=== PATIENT | male | born 1985 ===

== ENCOUNTER 2019-06-02 10:10 | Day surgery (SDC) | payer OTHER ==
[~2019-06-02 10:10] MED LIST: Buffered Lidocaine 1% SYRIN* 1 ML/SYRINGE INTRADERM ONE; Clindamycin 900 MG/D5W BAG(*) 900 MG/50 ML BAG IVPB ONE; Famotidine IV* 10 MG/ML 2 ML (20 mg) IV ONE; Famotidine IV* 10 MG/ML 2 ML (20 mg) ONE; Lactated Ringers 1000 ML Bag* 1,000 ML IV SCH; Levalbuterol 0.63MG/3ML NEB* UNIT OF USE INH ONE
[2019-06-02] MEDS ORDERED: Lidocaine 2% PF * 5 ML VIAL ONE (10:37)
[2019-06-02] MEDS ORDERED: Propofol* 10 MG/ML 20 ML BTL ONE (10:37)
[2019-06-02] MEDS ORDERED: Ketorolac INJ* 30 MG/ML 1 ML VIAL ONE (10:37)
[2019-06-02] MEDS ORDERED: Dexamethasone IV* 4 MG/ML 1 ML (4 MG) ONE (10:37)
[2019-06-02] MEDS ORDERED: Ondansetron INJ* 2 MG/ML VIAL ONE (10:37)
[2019-06-02] MEDS ORDERED: fentaNYL* 50 MCG/ML 2 ML VIAL (100 MCG VIAL) ONE ×3 (10:38→12:58)
[2019-06-02] MEDS ORDERED: Midazolam* 1 MG/ML 5 ML VIAL (5 MG) ONE (10:38)
[2019-06-02] MEDS ORDERED: KETAMINE HCL* 50 MG/ML 10 ML VIAL ONE (10:38)
[2019-06-02] MEDS ORDERED: Cisatracurium* 2 MG/ML MDV 5 ML ONE (11:13)
[2019-06-02] MEDS ORDERED: Glycopyrrolate IV* 0.2 MG/ML 1 ML VIAL ONE (11:42)
[2019-06-02] MEDS ORDERED: Neostigmine Methylsulfate* 1 MG/ML 10 ML VIAL (1 mg/ml) ONE (11:42)
[2019-06-02] MEDS ORDERED: Naloxone* 0.4 MG/ML 10 ML VIAL ONE (12:15)
[2019-06-02] MEDS ORDERED: Levalbuterol 0.63MG/3ML NEB* UNIT OF USE INH ONE (12:26)
[2019-06-02] MEDS ORDERED: Naloxone* 0.4 MG/ML 1 ML VIAL IV PRN (12:32)
[2019-06-02] MEDS ORDERED: Levalbuterol 0.63MG/3ML NEB* UNIT OF USE INH PRN (12:32)
[2019-06-02] MEDS ORDERED: Ondansetron INJ* 2 MG/ML VIAL IV PRN (12:32)
[2019-06-02] MEDS: fentaNYL* 50 MCG/ML 2 ML VIAL (100 MCG VIAL) IV PRN ×4 (12:37→14:02)
[2019-06-02] MEDS ORDERED: Succinylcholine* 20 MG/ML 10 ML VIAL ONE (12:38)
[2019-06-02 14:41] VITALS: BP 141/94
--- NOTE | 2019-06-02 21:29 | OP ---
DATE OF OPERATION: 06/02/19 - [facility] DATE OF : 85 ATTENDING SURGEON: Zhen Rider MD GAS ATTENDANT: Valente Sloan PA-C PRE-OP DIAGNOSIS: Acute tear, left Achilles without laceration. POST-OP DIAGNOSIS: Acute tear, left Achilles without laceration. OPERATIVE PROCEDURE: Left Achilles repair. DESCRIPTION OF PROCEDURE: The patient was taken to the operating room in prone position. With thigh tourniquet, general anesthesia, we made a longitudinal incision medial to the Achilles giving us 5 to 6 cm proximal and distal to the tear. Full thickness flap was raised with the peritenon. We performed a double weave suture repair using #1 PDS with each ends tied remotely from the tear. This gave nice smooth approximation of the tear under mild compression. We then irrigated subcu tissue, closing with deep subcu of 2-0 Monocryl, darek and Prolene for the skin, and a compression dressing plaster splint applied. [id number] #: [id number] MTDD
== END 2019-06-02 14:40 ==
LOC: OR 10:10
PROVIDERS: ATTEND Orthopaedic Surgery
DX: S86.012A Strain of left Achilles tendon, initial encounter (principal); X50.0XXA Overexertion from strenuous movement or load, initial encounter; Y93.67 Activity, basketball; Y92.148 Other place in prison as the place of occurrence of the external cause; Z88.0 Allergy status to penicillin; I10 Essential (primary) hypertension; J45.909 Unspecified asthma, uncomplicated
CPT/HCPCS: J0330; J1100; J1885; J2250; J2310; J2405; J2704; J2710; J3010